=== PATIENT | male | born 1960 | race Caucasian/White ===

== ENCOUNTER 2016-04-27 05:41 | Day surgery (SDC) | payer BC ==
[2016-04-05 08:10] VITALS: BMI 45.0
--- NOTE | 2016-04-05 08:41 | PAT Medication Instructions ---
Service Date Apr 05, 2016. Current Home Medication List Naproxen (Aleve), 220-440 MG PO Q6 PRN Sodium Chloride ([place]pton Nasal), 1-2 SPRAYS JOSEP PRN Triamcinolone Acetonide (Nasal (Nasacort Allergy 24Hr), 2 SPRAY JOSEP QAM PRN for PRN Medication Instructions For Your Scheduled Surgery - Hold the following medications the morning of surgery: Naproxen (Aleve), 220-440 MG PO Q6 PRN - Take the following medications the morning of surgery: Triamcinolone Acetonide (Nasal (Nasacort Allergy 24Hr), 2 SPRAY JOSEP QAM PRN for PRN Sodium Chloride (Upton Nasal), 1-2 SPRAYS JOSEP PRN *Nothing to eat or drink after midnight* If you have any questions please call us at [phone] (Belinda Briones PA-C ) or [phone] or [phone]
--- NOTE | 2016-04-05 09:19 | DIAGNOSTIC IMAGING REPORT ---
TWO VIEW CHEST CLINICAL HISTORY: Preoperative examination. FINDINGS: PA and lateral chest radiographs are compared to study dated 05/22/2008. The heart is top normal for projection. The mediastinal contour is within normal limits. The lungs and pleural spaces are clear. There is no pneumothorax. The bony thorax appears intact. IMPRESSION: No active disease in the chest. Electronically signed by: Vidal Church M.D. 04/05/2016 9:17 AM
[2016-04-05 10:12] LABS: URINE APPEARANCE CLEAR (CLEAR); URINE BILIRUBIN NEG (NEG); URINE COLOR YELLOW; URINE NITRITE NEG (NEG); URINE SPECIFIC GRAVITY 1.023 (1.000-1.030); UROBILINOGEN NEG (NEG)
[2016-04-05 10:18] LABS: MANUAL MICROSCOPIC REQUIRED? NO; REVIEW REQ? NO
[~2016-04-27] VITALS: Ht 167.6 cm; Wt 126.4 kg
[~2016-04-27 05:41] MED LIST: NAPR1TAB9 PO; SALI0.6517 NAE; TRIA1SPR4 NAE
[2016-04-27 05:53] VITALS: BP 149/76; PULSE 69; TEMP 37; O2SAT 97; Ht 167.6 cm; Wt 126.4 kg
[2016-04-27] MEDS ORDERED: CEFAZOLIN SOD 2000 MG in DEXTROSE 5% 50ML IV SCH (06:00)
[2016-04-27] MEDS ORDERED: LACTATED RINGER'S 1000ML 1,000 ML IV SCH (06:00)
[2016-04-27] MEDS ORDERED: CEFAZOLIN 3000 MG/65 ML D5W IV SCH (06:00)
[2016-04-27] MEDS ORDERED: PROPOFOL IV EMULSION 10 MG/ML 20 ML VIAL IV ONE (07:04)
[2016-04-27] MEDS ORDERED: ONDANSETRON INJ 2 MG/ML 2 ML VIAL ONE ×2 (07:04→09:17)
[2016-04-27] MEDS ORDERED: MIDAZOLAM HCL 1 MG/ML 2ML VIAL ONE (07:04)
[2016-04-27] MEDS ORDERED: DEXAMETHASONE SOD INJ 4 MG/ML VIAL ONE (07:04)
[2016-04-27] MEDS ORDERED: FENTANYL CITRATE INJ 50 MCG/1 ML 2 ML VIAL ONE ×2 (07:04→07:51)
[2016-04-27] MEDS ORDERED: LIDOCAINE HCL 2% 2 ML VIAL (20MG/ML) ONE (07:04)
[2016-04-27] MEDS ORDERED: GLYCOPYRROLATE INJ 0.2 MG/ML VIAL ONE ×2 (07:04→07:50)
--- NOTE | 2016-04-27 07:24 | History & Physical Bridge Note ---
H&P Re-Evaluation Bridge Note: I have examined the patient, reviewed the History & Physical and in the interval since the performance of the History & Physical I have noted the following changes of clinical significance: No changes noted
[2016-04-27] MEDS ORDERED: ROCURONIUM BROMIDE 10 MG/ML 5 ML VIAL ONE (07:50)
[2016-04-27] MEDS ORDERED: NEOSTIGMINE METHYLSULFATE 5 MG/5 ML SYR ONE (07:50)
[2016-04-27] MEDS ORDERED: PHENYLEPHRINE HCL INJ 10 MG/ML VIAL ONE (07:52)
[2016-04-27] MEDS ORDERED: LABETALOL HCL IV 5 MG/ML 20ML ONE (08:09)
[2016-04-27] MEDS ORDERED: BUPIVACAINE 0.5 % 5 MG/1 ML MPF 30ML VIAL INJ ONE (08:39)
[2016-04-27] MEDS ORDERED: BACITRACIN OINT 15 GM TUBE TOP ONE (08:40)
--- NOTE | 2016-04-27 08:49 | [facility] Post Operative Brief Note ---
Immediate Operative Summary Operative Date Apr 27, 2016. Pre-Operative Diagnosis Phimosis, Urinary Frequency Post-Operative Diagnosis Phimosis, Meatal stenosis Procedure(s) Performed Circumcision; Meatotomy and meatoplasty; flexible cystoscopy Surgeon Dr. Williams Houser [employer] Manager Surgeon(s) None per surgeon Estimated Blood Loss 15ml Findings as per dictation Specimens A.) Foreskin Drains none Anesthesia gen Complication(s) None Disposition Recovery Room / PACU (stable)
[2016-04-27] MEDS ORDERED: HYDR-5688 PO (08:51)
[2016-04-27] MEDS ORDERED: SODIUM CHLORIDE 0.9% 1000ML 1,000 ML IV SCH (08:55)
--- NOTE | 2016-04-27 08:55 | Discharge Instructions ---
Discharge Instructions Admission Reason for Admission: Phimosis, Urinary Freguency Discharge Discharge Diagnosis / Problem: Phimosis; meatal stenosis Discharge Goals Goal(s): Decrease discomfort, Improve function, Increase independence, Improve disease control Activity Recommendations Activity Limitations: resume your previous activity Lifting Limitations: none Exercise/Sports Limitations: rest today, gradually increase as tolerated May Resume Sexual Activity: after follow-up appointment Shower/Bathe: tomorrow (shower) Driving or Machine Use: you may drive when you are off of pain meds . Instructions / Follow-Up Instructions / Follow-Up Wound Care - it will be very hard to keep a dressing on the incision - you have stitches around the penis as well as stitches near the opening through which you urinate - please apply bacitracin (antibiotic ointment) to both of these areas 2-3 times per day - please pay particular attention to the area that is just below the head of your penis (the area that was most tender prior to the procedure), this area is somewhat raw and liberally applying bacitracin will help prevent scarring and promote better healing. - the stitches will gradually come out on their own, this may take 24-48 hours or as long as 2-3 weeks - it is not unusual to see some blood Discharge Diet Recommended Diet: Regular Diet Procedures Procedures Performed: Circumcision; Meatotomy and meatoplasty; flexible cystoscopy Pending Studies Studies pending at discharge: no Laboratory Results Hemoglobin A1c Test 04/05/16 08:50 Range/Units Estimated Average Glucose 117 mg/dl Hemoglobin A1c 5.7 H 4.5-5.6 % Lipid Panel Test 04/05/16 08:50 Range/Units Triglycerides Level 148 0-150 mg/dl Cholesterol Level 197 0-200 mg/dl HDL Cholesterol 47 mg/dl Cholesterol/HDL Ratio 4.2 LDL Cholesterol, Calculated 120 mg/dl Medical Emergencies . Who to Call and When: Medical Emergencies: If at any time you feel your situation is an emergency, please call 911 immediately. . Non-Emergent Contact Non-Emergency issues call your: Urologist Call Non-Emergent contact if: you have a fever, temperature is above 101.5, your pain is not controlled, your pain is worsening . . "Provider Documentation" section prepared by Lars Christina. VTE Core Measure Inpt VTE Proph given/why not?: Treatment not indicated [place] Drug Monitoring Program Search Results: patient reviewed within database, no issues identified
[2016-04-27] MEDS ORDERED: OXYCODONE/ACETAMINOPHEN 5-325 TAB PO PRN ×2 (09:00)
[2016-04-27] MEDS ORDERED: LABETALOL HCL IV 5 MG/ML 20ML IV PRN (09:15)
[2016-04-27] MEDS ORDERED: ONDANSETRON INJ 2 MG/ML 2 ML VIAL IV PRN (09:15)
[2016-04-27] MEDS ORDERED: FENTANYL CITRATE INJ 50 MCG/1 ML 2 ML VIAL IV PRN (09:15)
[2016-04-27] MEDS ORDERED: EpHEDrine SULFATE INJ 50 MG/ML AMP IV PRN (09:15)
[2016-04-27] MEDS ORDERED: HYDROmorphone INJ 1 MG/ML SYR IV PRN (09:15)
[2016-04-27] MEDS ORDERED: MEPERIDINE HCL 25 MG/ML CARP IV PRN (09:15)
[2016-04-27] MEDS ORDERED: ATROPINE SULFATE 0.1 MG/ML 5ML SYR IV PRN (09:15)
--- NOTE | 2016-04-27 09:24 | OPERATIVE REPORT ---
DATE OF OPERATION: 04/27/2016 PREOPERATIVE DIAGNOSIS: Phimosis and urinary frequency. POSTOPERATIVE DIAGNOSIS: Phimosis and meatal stenosis. PROCEDURE PERFORMED: Circumcision and meatotomy, meatoplasty and flexible cystoscopy. SURGEON: Dr. Williams Houser. ANESTHESIA: General. ESTIMATED BLOOD LOSS: 15 mL. URINE OUTPUT: Not recorded. SPECIMEN: Foreskin for routine pathology. OPERATION AND FINDINGS: DESCRIPTION OF THE PROCEDURE: Vidal Valadez was identified in the preoperative holding area. Appropriate informed consents were reviewed and completed and the patient was transported to the operating suite. He received Ancef upon arrival and general anesthesia. He was in supine position where he was sterilely prepped and draped in standard fashion. Of note, on examination his phimosis was quite tight and unable to be reduced in its natural form. I therefore performed dorsal slit to allow retraction of the foreskin and then reprepped the glans utilizing Betadine. After entirely retracting the foreskin and inspecting the inner prepuce I was able to complete the circumcision by making proximal and distal incision circumferentially around the penis. The distal incision was made approximately 1 cm behind the glans and proximal incision was made on the shaft skin just behind the natural position of the mason. This band was entirely excised. Hemostasis was obtained from the underlying tissue. I then reapproximated this utilizing 2-0 chromic stitch placed in U-stitch fashion on the ventral surface as well as a single simple interrupted 2-0 chromic on the dorsal midline. I then placed intervening 3-0 chromic stitches circumferentially around the penis to fully reapproximate the skin. There was an excellent cosmetic result from this portion of the procedure. Of note, prior to retracting the skin he had a significantly inflamed frenular area on the ventral surface of the penis that would be on the inner prepuce away from our circumcision site. This was relatively raw but was hemostatic and not concerning for other more significant pathology. I then turned my attention to his meatus. His meatus was extremely small and relatively pinpoint. He has had significant urinary frequency. We had attempted an office flexible cystoscopy and I was unable to guide the scope through the phimosis, I was unable to pass this into the meatus. On inspection today the meatal stenosis clearly explains this. I gently passed a straight hemostat with a single arm into the urethra and I clamped the ventral surface to create a meatotomy. I repeated this again until I expanded the opening to approximately 1 cm in length. I then was able to visualize the mucosa internally and I sewed the internal mucosa back to the skin edge with a series of 5 stitches placed around my prior incision. There was and excellent cosmetic appearance as well as what appeared to be an excellent functional response. At that time I was easily able to pass a flexible cystoscope per meatus and guided this through and saw no other stricture disease or other abnormalities along the course of his urethra. His prostate was mildly enlarged without being drastically obstructive. Inspection of the bladder revealed healthy appearing bladder without any mucosal disease. Ureteral orifices were in orthotopic position and there was no significant trabeculation. Following this inspection, I withdrew the cystoscope and concluded the case. I did place a dorsal penile block as well as a ring block utilizing 0.5% Marcaine and dressed the wound with Vaseline gauze and bacitracin. The case was then concluded. The patient was extubated and taken to the PACU in stable condition. I attest to the content of the Intraoperative Record and any orders documented therein. Any exceptio ns are noted below.
[2016-04-27 09:50] VITALS: BP 121/50; PULSE 64; TEMP 36.4; O2SAT 97
[2016-04-27 10:21] VITALS: BP 133/75; PULSE 60; TEMP 36.6; O2SAT 100
[2016-04-27 10:50] VITALS: BP 134/67; O2SAT 100
--- NOTE | 2016-04-27 11:33 | Anesthesiology Progress Note ---
Anesthesia Post Op Note Date & Time Apr 27, 2016 at 11:32 Vital Signs Pain Intensity: 0 Vital Signs Past 12 Hours Date Time Temp Pulse Resp B/P Pulse Ox O2 Delivery O2 Flow Rate FiO2 04/27/16 10:21 36.6 60 20 133/75 100 Nasal Cannula 2 04/27/16 09:50 36.4 64 20 121/50 97 Nasal Cannula 2 04/27/16 09:35 36.4 59 18 120/77 98 Nasal Cannula 2 04/27/16 09:25 60 19 116/71 97 Nasal Cannula 2 04/27/16 09:15 59 20 112/77 98 Room Air 04/27/16 09:05 64 22 121/75 98 Mask 10 04/27/16 08:55 59 21 131/90 97 Mask 10 04/27/16 08:47 36.2 62 17 146/96 96 Mask 10 04/27/16 05:53 37 69 20 149/76 97 Room Air Notes Mental Status: alert / awake / arousable, participated in evaluation Pt Amnestic to Procedure: Yes Nausea / Vomiting: adequately controlled Pain: adequately controlled Airway Patency, RR, SpO2: stable & adequate BP & HR: stable & adequate Hydration State: stable & adequate Anesthetic Complications: no major complications apparent
== END 2016-04-27 11:45 | disposition home or self-care (01) ==
LOC: C.ACU 05:41
PROVIDERS: ATTEND Urology
DX: N47.1 Phimosis (principal); N35.9 Urethral stricture, unspecified; R39.15 Urgency of urination; G47.33 Obstructive sleep apnea (adult) (pediatric); E66.01 Morbid (severe) obesity due to excess calories; E11.9 Type 2 diabetes mellitus without complications; E78.5 Hyperlipidemia, unspecified; K21.9 Gastro-esophageal reflux disease without esophagitis; Z98.818 Other dental procedure status; Z82.49 Family history of ischemic heart disease and other diseases of the circulatory system; Z83.3 Family history of diabetes mellitus; Z80.42 Family history of malignant neoplasm of prostate

== ENCOUNTER → 2016-12-23 | Outpatient (CLI) | payer BC ==
[2016-12-23 14:39] LABS: BASO % 0.5 %; BASO ABS # 0.04 K/uL (0-0.2); COMPLETE YES; EOS % 1.8 %; HEMATOCRIT 46.5 % (42-52); IG% 0.4 %; LYMPH % 25.5 %; LYMPH ABS # 2.03 K/uL (1.2-3.4); MEAN CELL VOLUME 89.6 fL (80-100); MEAN CORPUSCULAR HEMOGLOBIN 30.4 pg (25-34); MEAN PLATELET VOLUME 11.4 fL (7.4-10.4); MONO % 8.4 %; NEUT % 63.4 %; PLATELET COUNT 250 K/uL (130-400); RED BLOOD COUNT 5.19 M/uL (4.7-6.1); WHITE BLOOD COUNT 7.97 K/uL (4.8-10.8)
--- NOTE | 2016-12-23 14:52 | DIAGNOSTIC IMAGING REPORT ---
TWO VIEW CHEST CLINICAL HISTORY: Dyspnea on exertion. FINDINGS: PA and lateral chest radiographs are compared to study dated 04/05/2016. The cardiomediastinal heart is mildly enlarged. The mediastinal contour is within normal limits. The pulmonary vascular structures noncongested. The lungs and pleural spaces are clear. There is no pneumothorax. The bony thorax appears intact. IMPRESSION: Mild cardiac enlargement with no active disease in the chest. Electronically signed by: Vidal Church M.D. 12/23/2016 2:51 PM Dictated Date/Time: 12/23/2016 2:47 PM
[2016-12-23 15:06] LABS: ALT/SGPT 41 U/L (12-78); AST/SGOT 20 U/L (15-37); BLOOD UREA NITROGEN 9 mg/dl (7-18); BUN/CREATININE RATIO 10.8 (10-20); CARBON DIOXIDE 30 mmol/L (21-32); CHLORIDE 107 mmol/L (98-107); CREATININE 0.81 mg/dl (0.60-1.40); GLUCOSE 93 mg/dl (70-99); POTASSIUM 3.8 mmol/L (3.5-5.1); SODIUM 141 mmol/L (136-145)
[2016-12-23 15:17] LABS: ALB/GLOB RATIO 0.9 (0.9-2); ALKALINE PHOSPHATASE 79 U/L (45-117); CHOLESTEROL 192 mg/dl (0-200); CHOLESTEROL/HDL RATIO 4.7; HDL CHOLESTEROL 41 mg/dl; LDL CHOLESTEROL CALCULATED 128 mg/dl; TRIGLYCERIDES 117 mg/dl (0-150); VERY LOW DENSITY LIPOPROT CALC 23 mg/dl
[2016-12-23 16:29] LABS: LYME DISEASE AB IGG NEG (NEG); LYME DISEASE AB IGM NEG (NEG)
== END | disposition home or self-care (01) ==
LOC: C.RAD 12:57
PROVIDERS: ATTEND Physician Assistant
DX: R06.02 Shortness of breath (principal); E78.5 Hyperlipidemia, unspecified; R61 Generalized hyperhidrosis; I51.7 Cardiomegaly

== ENCOUNTER → 2017-01-27 | Outpatient (CLI) | payer BC ==
--- NOTE | 2017-01-27 14:04 | DIAGNOSTIC IMAGING REPORT ---
L KNEE 1 OR 2 VIEWS ROUTINE, R KNEE 1 OR 2 VIEWS ROUTINE CLINICAL HISTORY: M25.569 Knee pain, [id number] COMPARISON STUDY: None. FINDINGS: No fracture or dislocation. Bone mineralization is intact. No knee effusion. Soft tissues are unremarkable. Minimal cartilage space narrowing within the medial and lateral compartment of the bilateral knees with tiny marginal osteophytes. IMPRESSION: Minimal osteoarthritis within the bilateral knees. No fractures. Electronically signed by: William Hudson M.D. 01/27/2017 2:02 PM Dictated Date/Time: 01/27/2017 2:00 PM
--- NOTE | 2017-01-27 14:04 | DIAGNOSTIC IMAGING REPORT ---
L KNEE 1 OR 2 VIEWS ROUTINE, R KNEE 1 OR 2 VIEWS ROUTINE CLINICAL HISTORY: M25.569 Knee pain, [id number] COMPARISON STUDY: None. FINDINGS: No fracture or dislocation. Bone mineralization is intact. No knee effusion. Soft tissues are unremarkable. Minimal cartilage space narrowing within the medial and lateral compartment of the bilateral knees with tiny marginal osteophytes. IMPRESSION: Minimal osteoarthritis within the bilateral knees. No fractures. Electronically signed by: William Hudson M.D. 01/27/2017 2:02 PM Dictated Date/Time: 01/27/2017 2:00 PM
== END | disposition home or self-care (01) ==
LOC: C.RAD 13:03
PROVIDERS: ATTEND Internal Medicine
DX: M25.569 Pain in unspecified knee (principal); Z11.59 Encounter for screening for other viral diseases; J32.9 Chronic sinusitis, unspecified; R53.83 Other fatigue; M35.00 Sjogren syndrome, unspecified

== ENCOUNTER → 2017-02-07 | Outpatient (CLI) | payer BC ==
[~2017-02-07] MED LIST changes: +GADAVIST IV PRN
--- NOTE | 2017-02-07 11:11 | DIAGNOSTIC IMAGING REPORT ---
CERVICAL SPINE COMBO HISTORY: Pain. Neuropathy. CERVICAL RADICULOPATHY TECHNIQUE: Multiplanar multisequence MRI of the cervical spine was performed both before and after the use of intravenous contrast. COMPARISON STUDY: None. FINDINGS: Unremarkable signal characteristics the vertebral bodies. Posterior disc herniation C5-C6 and to lesser extent C4-C5. Minimal subtle increase in signal of the cervical cord at C5-C6 consistent with minimal myelomalacia. No significant postcontrast sagittal enhancement area C2-C3: No significant central canal or neural foraminal narrowing. C3-C4: No significant central canal or neural foraminal narrowing. C4-C5: Mild central disc herniation. Minimal impact anterior cervical cord. C5-C6: Broad-based left central disc herniation. Moderate impact left anterior cervical cord. Moderate narrowing of the neuroforamina bilaterally. Subtle myelomalacia C6-C7: Lateral bulging disc with moderate narrowing of the right to lesser extent left neural foramina. C7-T1: No significant central canal or neural foraminal narrowing. IMPRESSION: 1. Broad-based left central disc herniation C5-C6. 2. This creates focal impact left anterior cervical cord with evidence for secondary myelomalacia. 3. Moderate narrowing of the neuroforamina bilaterally at this level. 4. Mild central disc herniation C4-C5. 5. No abnormal postcontrast enhancement. The above report was generated using voice recognition software. It may contain grammatical, syntax or spelling errors. Electronically signed by: Mark Ford M.D. 02/07/2017 11:09 AM Dictated Date/Time: 02/07/2017 11:05 AM
== END | disposition home or self-care (01) ==
LOC: C.MRIBC 09:28
PROVIDERS: ATTEND Physician Assistant
DX: M54.12 Radiculopathy, cervical region (principal); M50.221 Other cervical disc displacement at C4-C5 level; M48.02 Spinal stenosis, cervical region

== ENCOUNTER 2017-07-07 17:14 | Emergency (ER) | payer BC, OTHER ==
[~2017-07-07] VITALS: Ht 168.9 cm; Wt 125.3 kg
[~2017-07-07 17:14] MED LIST changes: +GABA-113 PO; -GADAVIST IV PRN
[2017-07-07 17:42] VITALS: TEMP 37; Ht 168.9 cm; Wt 125.3 kg
[2017-07-07] MEDS ORDERED: ACET-1256 PO (17:52)
[2017-07-07] MEDS ORDERED: PHEN-622 PO (17:54)
[2017-07-07] MEDS ORDERED: NEOM1SUS21 OP (18:17)
[2017-07-07 18:30] VITALS: BP 167/96; PULSE 88; O2SAT 95
--- NOTE | 2017-07-08 22:25 | EMERGENCY ROOM VISIT NOTE ---
ED Visit Note First contact with patient: 17:52 Chief Complaint: Right ear pain. History of Present Illness: Mr. Miller is a 56-year-old white male who ambulates into the ED complaining of right ear pain. Patient reports he has been having upper respiratory tract symptoms for the last few days which has included sinus congestion, runny nose and a mild nonproductive cough. Historically he also reports that after every shower he cleans out his ears with Q-tips. Patient reports approximately 2:00 this afternoon, 5.5 hours ago, he blew his nose and reports there was a popping sensation in the right ear associated with what he describes as horrible pain. Since that time the pain has decreased but is still present. Currently he describes his pain as a fullness/pressure sensation in the right ear canal. He rates his discomfort 5/10. His pain does radiate into the jaw and the lateral aspect of the neck. His pain worsens with blowing his nose, burping, coughing and palpation. He has not identified any alleviating factors related to the pain. He has not taken any medications for pain prior to arrival at the hospital. Associated with his pain he reports he has a mild ringing in the right ear. He denies fevers, chills, sweats, skin eruptions, skin color changes, previous significant ear diseases or surgeries, headache, dizziness, ear drainage, sore throat, difficulty speaking, difficulty swallowing, shortness of breath, nausea/ vomiting. Review of Systems: As noted above in history of present illness. 8 body systems were reviewed and found to be negative as noted above. Past Medical History: Cardiac arrhythmias, unspecified skin disorder, gastric ulcers, kidney stones, status post circumcision, various oral surgery including dental implantation, cervical spine disc herniation/arthritis, sleep apnea. Current Medications: Naproxen, Nasacort, Tylenol, Vicks DayQuil. Allergies to Medications: Patient denies. Social History: Patient is currently employed; he feels safe in his home environment; he denies tobacco and alcohol use. Physical Examination: Vital Signs: Date Time Temp Pulse Resp B/P (MAP) Pulse Ox O2 Delivery O2 Flow Rate FiO2 07/07/17 18:30 88 20 167/96 95 07/07/17 17:42 37.0 88 20 167/96 95 Room Air GENERAL: 56-year-old male in moderate distress due to pain, nontoxic-appearing, afebrile and hemodynamically stable. NEUROLOGICAL: Awake, alert and oriented to person, place and time. Answering questions appropriately and following commands. Normal gait. Good hand eye coordination. No focal motor sensory deficits. SKIN: Warm, dry and pink. No soft tissue eruptions or trauma noted. HEENT: Atraumatic and normocephalic. Mild erythema over the frontal and maxillary sinuses. Moderate tenderness with distraction of the external right ear. Positive tragal tenderness on the right. Right auditory canal is significantly erythematous and edematous. Because of his edema I was not able to visualize the tympanic membrane. There is no tenderness throughout the left ear and the left tympanic membrane was not erythematous or edematous. No preauricular or postauricular lymphadenopathy. No tenderness or erythema over the mastoid processes. PERRLA. Sclera white and conjunctiva pink. No drainage from naris but audible congestion. Oral cavity moist and pink. Airway is patent. Uvula is midline and no abscesses are seen. Pharynx is nonerythematous or edematous. Speech normal. ED Course: Patient is assessed as noted above. Patient's medication list was reviewed. Patient was offered pain medication and refused. Patient was educated about today's findings and instructed on his treatment plan ; he verbalized understanding and agreement with this plan. Clinical Impression: Acute right otitis externa. Decision-Making: Initially my differential diagnosis I considered otitis media, otitis externa, gordon syndrome and other causes. Disposition: Patient discharged home in stable condition; prior to departure he was reassessed and subjectively reported he was feeling the same. Plan: Patient was encouraged alternate ibuprofen and acetaminophen every 3 hours as needed for pain. Patient was prescribed Cortisporin Otic suspension and encouraged use 5 drops in his right ear canal 4 times a day for 5-7 days. Patient was encouraged to avoid putting anything or allowing anything in his right ear canal until pain-free. Patient was encouraged to follow-up with his PCP for recheck in 2-4 days. Patient was encouraged return the ED for worsening/uncontrolled pain, fevers, vomiting, dizziness, worsening hearing changes or any new/concerning symptoms.
== END 2017-07-07 18:30 | disposition home or self-care (01) ==
LOC: C.EDB 17:15 → C.EDD 18:30
DX: H60.501 Unspecified acute noninfective otitis externa, right ear (principal); I49.9 Cardiac arrhythmia, unspecified; K25.9 Gastric ulcer, unspecified as acute or chronic, without hemorrhage or perforation; Z87.442 Personal history of urinary calculi; M50.20 Other cervical disc displacement, unspecified cervical region; G47.30 Sleep apnea, unspecified; Z79.899 Other long term (current) drug therapy

== ENCOUNTER → 2017-08-17 | Outpatient (CLI) | payer OTHER ==
[~2017-08-17] MED LIST changes: +ACET-1256 PO; -GABA-113 PO; +NEOM1SUS21 OP; +PHEN-622 PO; -SALI0.6517 NAE
== END | disposition home or self-care (01) ==
LOC: C.LAB 12:36
PROVIDERS: ATTEND Urology
DX: R35.0 Frequency of micturition (principal); R39.15 Urgency of urination